=== PATIENT | female | born 1950 | race African-American/Black ===

== ENCOUNTER → 2016-04-07 | Outpatient (CLI) | payer SELFPAY ==
--- NOTE | 2016-04-09 08:34 | MM ---
Reason for exam: screening (asymptomatic). Last mammogram was performed 1 year and 2 months ago. History: Patient is postmenopausal. Family history of breast cancer in mother at age 40 and breast cancer in sister at age 48. Benign excisional biopsy of the left breast, November 10, 1999. Stereotactic core biopsy of the left breast, October 22, 1999. Core biopsy of the left breast. Physical Findings: A clinical breast exam by your physician is recommended on an annual basis and results should be correlated with mammographic findings. MG 3D Screening Mammo W/Cad Bilateral CC and MLO view(s) were taken. Prior study comparison: January 28, 2015, bilateral MG screening mammo w CAD. April 23, 2013, CAD bilateral diagnostic mammogram. February 25, 2012, bilateral digital screening mammo w/CAD. The breast tissue is heterogeneously dense. This may lower the sensitivity of mammography. No significant changes when compared with prior studies. ASSESSMENT: Negative, BI-RAD 1 RECOMMENDATION: Routine screening mammogram of both breasts in 1 year.
== END | disposition home or self-care (01) ==
LOC: RADMAMWWP 16:09
PROVIDERS: ATTEND Family Medicine
DX: Z12.31 Encounter for screening mammogram for malignant neoplasm of breast (principal)
CPT/HCPCS: 77063; G0202

== ENCOUNTER → 2018-01-11 | Outpatient (CLI) | payer MEDICAID ==
--- NOTE | 2018-01-12 13:26 | MM ---
Reason for exam: screening (asymptomatic). Last mammogram was performed 1 year and 9 months ago. History: Patient is postmenopausal. Family history of breast cancer in mother at age 40 and breast cancer in sister at age 48. Benign excisional biopsy of the left breast, November 10, 1999. Stereotactic core biopsy of the left breast, October 22, 1999. Core biopsy of the left breast. Physical Findings: A clinical breast exam by your physician is recommended on an annual basis and results should be correlated with mammographic findings. MG 3D Screening Mammo W/Cad Bilateral CC and MLO view(s) were taken. Prior study comparison: April 07, 2016, bilateral MG 3d screening mammo w/cad. January 28, 2015, bilateral MG screening mammo w CAD. The breast tissue is heterogeneously dense. This may lower the sensitivity of mammography. No suspicious calcifications are seen. Post operative distortion left breast. No significant changes when compared with prior studies. ASSESSMENT: Benign, BI-RAD 2 RECOMMENDATION: Routine screening mammogram of both breasts in 1 year.
== END | disposition home or self-care (01) ==
LOC: RADMAMWWP 16:40
PROVIDERS: ATTEND Internal Medicine
DX: Z12.31 Encounter for screening mammogram for malignant neoplasm of breast (principal)
CPT/HCPCS: 77063; 77067

== ENCOUNTER → 2018-02-03 | Outpatient (CLI) | payer MEDICAID | END | disposition home or self-care (01) | LOC: LABWHC1 16:03 | PROVIDERS: ATTEND Internal Medicine | DX: E89.0 Postprocedural hypothyroidism (principal); E55.9 Vitamin D deficiency, unspecified | CPT/HCPCS: 36415; 82306; 84439; 84443 ==

== ENCOUNTER → 2018-03-27 | Outpatient (CLI) | payer MEDICAID ==
--- NOTE | 2018-03-27 11:42 | XR ---
EXAMINATION TYPE: XR lumbar spine 2 or 3V DATE OF EXAM: 03/27/2018 CLINICAL HISTORY: Chronic low back pain TECHNIQUE: Frontal and lateral images of the lumbar spine are obtained. COMPARISON: None FINDINGS: There are 5 lumbar type vertebral bodies identified. The lumbar spine shows satisfactory alignment without evidence of acute fracture or dislocation. Mild to moderate disc space narrowing L5 -S1 level is present. Vertebral body heights and disk space heights otherwise are within normal limit s. There is multilevel facet arthropathy in the mid to lower lumbar spine. Vascular calyces overlying abdominal aorta is noted. IMPRESSION: As above.
== END | disposition home or self-care (01) ==
LOC: RADXRMAIN 11:02
PROVIDERS: ATTEND Internal Medicine
DX: M48.07 Spinal stenosis, lumbosacral region (principal); M46.96 Unspecified inflammatory spondylopathy, lumbar region
CPT/HCPCS: 72100

== ENCOUNTER → 2018-04-15 | Outpatient (CLI) | payer MEDICAID ==
--- NOTE | 2018-04-15 09:07 | MR ---
EXAMINATION TYPE: MR knee LT wo con DATE OF EXAM: 04/15/2018 8:51 AM COMPARISON: NONE HISTORY: Lt knee pain x 2 yrs, no trauma TECHNIQUE: Multiplanar, multiecho imaging of the left knee is performed without IV contrast. FINDINGS: There is only a small amount of joint fluid. 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 There is grade III to I V chondromalacia involving the medial patellar facet. There is grade II to III chondromalacia involvi ng the weightbearing surface of the medial femoral condyle. There is no significant chondromalacia in volving the lateral femoral condyle. There is an oblique tear through the posterior horn and body horn junction of the medial meniscus com municating with the inferior articulating surface. This is undisplaced. The lateral meniscus is unrem arkable. Both the anterior and posterior cruciate ligaments are intact. Both the medial and lateral collateral ligament complexes are intact. The iliotibial band inserts nor isaac upon Gerdy's tubercle. Both the popliteus muscle and tendon are normal. Both the quadriceps and patellar tendons are intact. There is minimal inflammation in the Hoffa fat s pace. IMPRESSION: 1. CHONDROMALACIA DESCRIBED. 2. UNDISPLACED, OBLIQUE TEAR THROUGH THE POSTERIOR HORN AND BODY HORN JUNCTION OF THE MEDIAL MENISCUS COMMUNICATING WITH THE INFERIOR ARTICULATING SURFACE.
== END ==
LOC: RADMRIMAIN 08:21
PROVIDERS: ATTEND Orthopaedic Surgery
DX: M94.262 Chondromalacia, left knee (principal); S83.242A Other tear of medial meniscus, current injury, left knee, initial encounter

== ENCOUNTER → 2018-09-18 | Outpatient (CLI) | payer MEDICAID ==
[2018-09-19 01:37] LABS: T4, Free (Free Thyroxine) 0.8 ng/dL (0.80-1.80)
== END | disposition home or self-care (01) ==
LOC: LABWHC1 16:03
PROVIDERS: ATTEND Internal Medicine
DX: E55.9 Vitamin D deficiency, unspecified (principal); E89.0 Postprocedural hypothyroidism
CPT/HCPCS: 36415; 82306; 84439; 84443

== ENCOUNTER → 2018-10-06 | Outpatient (CLI) | payer MEDICAID ==
--- NOTE | 2018-10-06 14:24 | BD ---
EXAMINATION TYPE: Axial Bone Density DATE OF EXAM: 10/06/2018 COMPARISON: NONE CLINICAL HISTORY: Osteoporosis screening, postmenopausal female Height: 5 FT 4 3/4 IN Weight: 153 FRAX RISK QUESTIONS: History of Fracture in Adulthood: YES Secondary Osteoporosis: Current Tobacco Use: YES RISK FACTORS HISTORY OF: Active: YES Postmenopausal woman: AGE 48-49 MEDICATIONS: Thyroid Medications: YES Which medication: LEVOTHYROXINE How Long: SINCE THE 'S Additional Medications: LEVOTHYROXINE, EYE DROPS FOR GLAUCOMA Additional History: EXAM MEASUREMENTS: Bone mineral densitometry was performed using the [employer]. Bone mineral density as measured about the Lumbar spine is: ----- L1-L4(G/cm2): 1.616 T Score Values are as follows: ----- L2: 3.2 ----- L3: 3.7 ----- L4: 3.9 ----- L1-L4: 3.6 Bone mineral density has: DECREASED -10.9 % since study of: 2000 Bone mineral density about the R hip (g/cm2): 0.947 Bone mineral density about the L hip (g/cm2): 0.979 T Score values are as follows: -----R Neck: -0.7 -----L Neck: -0.4 -----R Total: 0.5 -----L Total: 1.2 Bone mineral density has: DECREASED -9.6 % since study of: 2000 IMPRESSION: Normal (Values between +1 and -1 indicate normal bone mass). Consider repeating this study in 5 year s or sooner if there is some new clinical indication. NOTE: T-SCORE=SD OF THE YOUNG ADULT MEAN.
== END | disposition home or self-care (01) ==
LOC: RADBDWWP 09:39
PROVIDERS: ATTEND Internal Medicine
DX: Z13.820 Encounter for screening for osteoporosis (principal)
CPT/HCPCS: 77080

== ENCOUNTER 2019-05-16 07:40 | Emergency (ER) | payer MEDICAID, MEDICARE ==
[2019-05-16] MEDS ORDERED: NAPROXEN 250 MG TAB PO STA (08:00)
[2019-05-16] MEDS ORDERED: LIDOCAINE 5% PATCH TOPICAL STA (08:00)
--- NOTE | 2019-05-16 08:04 | ED ---
General Adult HPI - General Chief complaint: Back Pain/Injury Stated complaint: Back pain Time Seen by Provider: 05/16/19 07:51 Source: patient Mode of arrival: ambulatory Limitations: no limitations - History of Present Illness Initial comments: Dictation was produced using [email or web address] dictation software. please excuse any grammatical, word or spelling errors. Chief Complaint: 68-year-old female presents with back pain. History of Present Illness: 68-year-old female she presents today with back pain. Patient was supposed to go to work hours called off because her back started hurting this morning. 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 Patient states she has pain that's to her left lateral soft tissue and across her lower back. Denies any radiation of symptoms. He states that her pain is not severe and not apparent at rest only noticeable with certain movements. She states with movement. Denies any numbness and paresthesias to the lower extremities. Denies any urinary or stool incontinence or retention. Denies any saddle anesthesia. Patient denies any chronic steroid use. Denies any recent trauma. The ROS documented in this emergency department record has been reviewed and confirmed by me. Those systems with pertinent positive or negative responses have been documented in the HPI. All other systems are other negative and/or noncontributory. PHYSICAL EXAM: General Impression: Alert and oriented x3, not in acute distress HEENT: Normocephalic atraumatic, extra-ocular movements intact, pupils equal and reactive to light bilaterally, mucous membranes moist. Cardiovascular: Heart regular rate and rhythm, S1&S2 audible, no murmurs, rubs or gallops Chest: Lungs clear to auscultation bilaterally, no rhonchi, no wheeze, no rales Abdomen: Bowel sounds present, abdomen soft, non-tender, non-distended, no organomegaly Musculoskeletal: Pulses present and equal in all extremities, no peripheral edema, tenderness to palpation over the left paraspinal muscular tissue Motor: no focal deficits noted Neurological: CN II-XII grossly intact, no focal motor or sensory deficits noted, no saddle anesthesia, negative straight leg test Skin: Intact with no visualized rashes Psych: Normal affect and mood ED course: 68-year-old female presents with clinical presentation consistent wit h musculoskeletal back strain. Upon arrival are within acceptable limits. Patient's well-appearing. Patient ambulatory with minimal gait disturbance. Pain is reproducible at bedside. Patient given 1 dose of Naprosyn, Lidoderm patch. Patient was insistent upon getting an x-ray. She also requests a work note. She is advised to follow-up with primary care physician regarding outpatient management of back pain. Patient is told to rest today. X-ray shows degenerative joint disease but no acute injuries. - Related Data Allergies Allergy/AdvReac Type Severity Reaction Status Date / Time No Known Allergies Allergy Verified 05/16/19 07:45 Review of Systems ROS Statement: Those systems with pertinent positive or pertinent negative responses have been documented in the HPI. ROS Other: All systems not noted in ROS Statement are negative. Past Medical History Past Medical History: Thyroid Disorder Additional Past Medical History / Comment(s): Glaucoma History of Any Multi-Drug Resistant Organisms: None Reported Past Surgical History: Appendectomy, Section Past Psychological History: No Psychological Hx Reported Smoking Status: Current some day smoker Past Alcohol Use History: Occasional Past Drug Use History: None Reported General Exam Limitations: no limitations Course Vital Signs 05/16/19 07:41 Temperature 98.1 F Pulse Rate 63 Respiratory 16 Rate Blood Pressure 182/77 O2 Sat by Pulse 99 Oximetry Disposition Clinical Impression: Mechanical back pain Disposition: HOME SELF-CARE Condition: Good Instructions (If sedation given, give patient instructions): Acute Low Back Pain (ED) Is patient prescribed a controlled substance at d/c from ED?: No Referrals: Leo Noriega MD [Primary Care Provider] - 1-2 days Time of Disposition: 09:22
[2019-05-16 08:13] VITALS: TEMP 98.1
--- NOTE | 2019-05-16 09:14 | XR ---
EXAMINATION TYPE: XR lumbar spine 2 or 3V DATE OF EXAM: 05/16/2019 CLINICAL HISTORY: pain TECHNIQUE: Three views of the lumbar spine are submitted. COMPARISON: 03/27/2018 FINDINGS: There are 5 lumbar type vertebral bodies identified. The lumbar spine shows satisfactory alignment w ithout evidence of acute fracture or dislocation. Vertebral body heights are within normal limits. Mild curvature convex to the right. Mild multilevel degenerative disc space narrowing. Severe lower l umbar facet joint arthropathy. The overlying soft tissue appears unremarkable. IMPRESSION: No acute fracture or dislocation is seen in the lumbar spine. ICD 10 NO FRACTURE, INITIAL EVALUATION
[2019-05-16 09:23] VITALS: RESP 20
[2019-05-16 09:29] VITALS: BP 157/85; PULSE 57
== END 2019-05-16 09:32 | disposition home or self-care (01) ==
LOC: EC 07:40
DX: M54.5 Low back pain (principal); R26.9 Unspecified abnormalities of gait and mobility; M47.816 Spondylosis without myelopathy or radiculopathy, lumbar region; F17.200 Nicotine dependence, unspecified, uncomplicated
CPT/HCPCS: 72100; 99283

== ENCOUNTER → 2020-01-21 | Outpatient (CLI) | payer MEDICAID ==
[2020-01-22 00:19] LABS: T4, Free (Free Thyroxine) 0.9 ng/dL (0.80-1.80)
== END | disposition home or self-care (01) ==
LOC: LABWHC1 16:04
PROVIDERS: ATTEND Internal Medicine
DX: E89.0 Postprocedural hypothyroidism (principal)
CPT/HCPCS: 36415; 84439; 84443

== ENCOUNTER → 2020-02-21 | Outpatient (CLI) | payer MEDICAID ==
--- NOTE | 2020-02-22 15:01 | MM ---
Reason for exam: screening (asymptomatic). Last mammogram was performed 2 years and 1 month ago. History: Patient is postmenopausal. Family history of breast cancer in mother at age 40 and breast cancer in sister at age 48. Benign excisional biopsy of the left breast, November 10, 1999. Stereotactic core biopsy of the left breast, October 22, 1999. Core biopsy of the left breast. Physical Findings: A clinical breast exam by your physician is recommended on an annual basis and results should be correlated with mammographic findings. MG 3D Screening Mammo W/Cad Bilateral CC and MLO view(s) were taken. Prior study comparison: January 11, 2018, bilateral MG 3d screening mammo w/cad. April 07, 2016, bilateral MG 3d screening mammo w/cad. The breast tissue is heterogeneously dense. This may lower the sensitivity of mammography. No significant changes when compared with prior studies. ASSESSMENT: Benign, BI-RAD 2 RECOMMENDATION: Routine screening mammogram of both breasts in 1 year.
== END | disposition home or self-care (01) ==
LOC: RADMAMWWP 15:53
PROVIDERS: ATTEND Internal Medicine Geriatric Medicine
DX: Z12.31 Encounter for screening mammogram for malignant neoplasm of breast (principal)
CPT/HCPCS: 77063; 77067

== ENCOUNTER → 2020-05-27 | Outpatient (CLI) | payer MEDICAID ==
[2020-05-28 02:03] LABS: T4, Free (Free Thyroxine) 1.1 ng/dL (0.80-1.80)
== END | disposition home or self-care (01) ==
LOC: LABWHC1 16:02
PROVIDERS: ATTEND Internal Medicine
DX: E89.0 Postprocedural hypothyroidism (principal)
CPT/HCPCS: 36415; 84439; 84443

== ENCOUNTER → 2020-06-05 | Outpatient (CLI) | payer MEDICAID ==
--- NOTE | 2020-06-05 20:59 | XR ---
EXAMINATION TYPE: XR chest 2V DATE OF EXAM: 06/05/2020 COMPARISON: Chest x-ray January 19, 2013 HISTORY: Chest tightness and shortness of breath for 5 months TECHNIQUE: Frontal and lateral views of the chest are obtained. FINDINGS: Slightly elevated left hemidiaphragm. There is mild chronic parenchymal change without susp icious new focal air space opacity, pleural effusion, or pneumothorax seen. The cardiac silhouette s ize is upper limits of normal with atherosclerotic change aortic knob. The osseous structures are i ntact. IMPRESSION: No acute process. No significant change from prior.
== END ==
LOC: RADXRMAIN 16:15
PROVIDERS: ATTEND Nurse Practitioner Gerontology
DX: R07.89 Other chest pain (principal); R06.02 Shortness of breath
CPT/HCPCS: 71046

== ENCOUNTER → 2020-06-27 | Outpatient (CLI) | payer MEDICAID ==
--- NOTE | 2020-06-27 11:28 | USB ---
Reason for exam: clinical finding. History: Patient is postmenopausal. Family history of breast cancer in mother at age 40 and breast cancer in sister at age 48. Benign excisional biopsy of the left breast, November 10, 1999. Stereotactic core biopsy of the left breast, October 22, 1999. Core biopsy of the left breast. Indicated problem(s): lump or thickening in the left breast. Physical Findings: Nurse did not find any significant physical abnormalities on exam. US Breast Limited LT Technologist: Shakira Schuster Left limited breast ultrasound including focal area of concern, retroareolar and axilla demonstrates a 1.3 x 0.5 x 0.5cm lymph node at the axilla, mildly thickened (cortex 3.3mm) but nonenlarged node, likely reactive to covid vaccine. No other abnormality seen. 2 o'clock scar visualized. No cystic or solid lesion seen. Scanned 12-9 o'clock. These results were verbally communicated with the patient and result sheet given to the patient on 06/27/09. ASSESSMENT: Incomplete: need additional imaging evaluation, BI-RAD 0 RECOMMENDATION: Special view mammogram of the left breast. (3D)
--- NOTE | 2020-06-27 11:30 | MM ---
Reason for exam: follow-up at short interval from prior study. Last mammogram was performed 4 months ago. History: Patient is postmenopausal. Family history of breast cancer in mother at age 40 and breast cancer in sister at age 48. Benign excisional biopsy of the left breast, November 10, 1999. Stereotactic core biopsy of the left breast, October 22, 1999. Core biopsy of the left breast. MG 3D Diag Mammo W/Cad LT CC and MLO view(s) were taken of the left breast. Prior study comparison: February 21, 2020, bilateral MG 3d screening mammo w/cad. January 11, 2018, bilateral MG 3d screening mammo w/cad. The breast tissue is heterogeneously dense. This may lower the sensitivity of mammography. Post excisional change superior left MLO view. Benign vascular calcifications. No significant new findings when compared with previous films. These results were verbally communicated with the patient and result sheet given to the patient on 06/27/20. ASSESSMENT: Benign, BI-RAD 2 RECOMMENDATION: Return to routine screening mammogram schedule for both breasts. Back on schedule for February 2021. Manage on a clinical basis with regard to any suspicious palpable area.
== END | disposition home or self-care (01) ==
LOC: RADUSWWP 07:32
PROVIDERS: ATTEND Internal Medicine Geriatric Medicine
DX: Z78.0 Asymptomatic menopausal state (principal); Z80.3 Family history of malignant neoplasm of breast
CPT/HCPCS: 77061; 77065

== ENCOUNTER → 2021-06-15 | Outpatient (CLI) | payer MEDICAID ==
[2021-06-15 22:56] LABS: T4, Free (Free Thyroxine) 1.15 ng/dL (0.800-1.800)
== END | disposition home or self-care (01) ==
LOC: LABWHC1 14:32
PROVIDERS: ATTEND Internal Medicine
DX: E03.9 Hypothyroidism, unspecified (principal); E55.9 Vitamin D deficiency, unspecified
CPT/HCPCS: 36415; 82306; 84439; 84443

== ENCOUNTER → 2022-11-03 | Outpatient (CLI) | payer MEDICARE ==
--- NOTE | 2022-11-03 11:39 | CA ---
Lexiscan Nuclear Stress Test Report Name: Shwetha Cruz Exam Date: 11/03/2022 09:54 Exam Location: [facility] Stress Ht (in): 65 Wt (lb): 120 BSA: 1.59 Ordering Phys: Porfirio Muñoz MD Referring Phys: Krystal Ornelas Technologist: CHARO,, Age: 71 Gender: F : 1950 Procedure CPT: Indications: R07.9 ICD-10 Codes: Patient History: Chest pain Medications: Meds past 24 hrs: Pretest Chest Pain: STRESS TEST Lexiscan Protocol Exercise Duration (min:sec): 02:[address] Depressions (mm): Angina Score: Grace Score: Resting HR (bpm): 57 Peak HR (bpm): 92 Resting BP (mmHg): 156 / 77 Peak BP (mmHg): 129 / 66 MPHR: 149 Target HR: 127 % MPHR: 62 METS: 1.0 Total Dose: Peak Dose: Atropine: Double Product: 11675 BP Response: Stress Termination: Infusion complete Stress Symptoms: No chest pain or symptoms Stress Summary: ECG ANALYSIS Resting ECG: Normal sinus rhythm with nonspecific ST-T wave changes Stress ECG: Patient was given intravenous Lexiscan as a protocol did not have chest pain or diagnostic ST segment depression CONCLUSIONS Negative stress test by EKG criteria Cardial lead portion of the stress test will be reported separately Dr. Umesh Arredondo MD (Electronically Signed) Final Date: 03 November 2022 11:38
--- NOTE | 2022-11-03 23:57 | NM ---
EXAMINATION TYPE: NM stress lexiscan cardiolite DATE OF EXAM: 11/03/2022 COMPARISON: NONE HISTORY: Chest pain TECHNIQUE: After the intravenous administration of 9.7 mCi Tc 99m Sestamibi - Cardiolite resting SPE CT images acquired 70 minutes post injection. At peak stress 25.1 mCi Tc 99m Sestamibi - Stress images obtained 35 minutes post injection The patient was stressed with 0.4mg Lexiscan. FINDINGS: No fixed defects are evident No reversible stress defects on Spect images Dyskinesia at the cardiac apex is present and may be some hypokinesia of the distal anterior wall. Ejection fraction is calculated to be 62 %. IMPRESSION: 1. No stress-induced ischemic changes. 2. Some dyskinesia cardiac apex and mild hypokinesia of the distal anterior wall may be present.
== END | disposition home or self-care (01) ==
LOC: RADNMMAIN 08:02
PROVIDERS: ATTEND Internal Medicine Geriatric Medicine
DX: I51.89 Other ill-defined heart diseases (principal); R07.9 Chest pain, unspecified
CPT/HCPCS: 93017; 78452; A9500

== ENCOUNTER → 2022-12-06 | Outpatient (CLI) | payer MEDICARE ==
--- NOTE | 2022-12-06 10:43 | US ---
EXAMINATION TYPE: US arterial LE single level DATE OF EXAM: 12/06/2022 9:48 AM CLINICAL INDICATION: Female, 72 years old with history of I73.9 PERIPHERAL VASCULAR DISEASE; History of: Smoker: Current Smoker Hypertension: No Diabetic: No Hyperlipidemia: No TIA/CVA: No Previous Vascular Surgery: No CAD: No NE: No Vascular Ulcers: No Claudication: NO Gangrene: No Multiphasic waveforms bilaterally. Monophasic waveforms within both images. Right Brachial Pressure: 124 Left Brachial Pressure: 127 Ankle-Brachial Indices: Right: 1.22 Left: 1.17 Toe Brachial Indices: Right: 0.99 Left: 0.98 IMPRESSION: Normal ankle-brachial indices bilaterally.
== END | disposition home or self-care (01) ==
LOC: RADUSWWP 09:00
PROVIDERS: ATTEND Internal Medicine Geriatric Medicine
DX: I73.9 Peripheral vascular disease, unspecified (principal)
CPT/HCPCS: 93922

== ENCOUNTER → 2024-08-27 | Outpatient (CLI) | payer MEDICARE ==
--- NOTE | 2024-08-27 15:26 | US ---
EXAMINATION TYPE: US arterial LE single level DATE OF EXAM: 08/27/2024 3:20 PM COMPARISONS: 12/06/22 CLINICAL INDICATION: Female, 73 years old with history of I73.9 PERIPHERAL VASCULAR DISEASE, UNSPECIF IED; PVD TECHNIQUE: Systolic pressures were taken of the upper and lower extremity arteries with ankle-brachia l indices and toe brachial indices calculated bilaterally. History of: Smoker: Current Hypertension: No Diabetic: No Hyperlipidemia: No TIA/CVA: No Previous Vascular Surgery: No CAD: No OK: No Vascular Ulcers: No Claudication: No Gangrene: No FINDINGS: Doppler Waveforms: Right: Multiphasic Left: Multiphasic Brachial Artery systolic pressure: Right: 100 Left: 103 Posterior Tibial artery systolic pressure: Right: 103 Left: 106 Dorsalis Pedis artery systolic pressure: Right: 100 Left: 99 Ankle-Brachial Indices: Right: 1.00 Left: 1.03 IMPRESSION: SOSA: Right: Normal 0.9 - 1.4, Recommendation: None Left: Normal 0.9 - 1.4, Recommendation: None [facility], , 08/27/2024 3:24 PM
== END | disposition home or self-care (01) ==
LOC: RADUSWWP 14:44
PROVIDERS: ATTEND Internal Medicine Geriatric Medicine
DX: I73.9 Peripheral vascular disease, unspecified (principal); F17.210 Nicotine dependence, cigarettes, uncomplicated
CPT/HCPCS: 93922